=== PATIENT | male | born 1995 | race Caucasian/White ===

== ENCOUNTER 2018-03-09 18:47 | Emergency (ER) | payer SELFPAY ==
[2018-03-09 18:55] VITALS: PULSE 94; RESP 16; TEMP 97.8; O2SAT 98
--- NOTE | 2018-03-09 19:21 | C.PDOC ---
History Of Present Illness 23 y/o male comes to the ED for evaluation of right shoulder pain just prior to arrival. Reports he fell while playing basketball and landed on the right shoulder. Pain is localized over the right shoulder and worsens with movement. Otherwise he denies any head trauma, syncope, headache, or other injury. Time Seen by Provider: 03/09/18 18:50 Chief Complaint (Nursing): Upper Extremity Problem/Injury History Per: Patient History/Exam Limitations: no limitations Onset/Duration Of Symptoms: Hrs Current Symptoms Are (Timing): Still Present Exacerbating Factor(s): Movement Past Medical History Reviewed: Historical Data, Nursing Documentation, Vital Signs Vital Signs: Last Vital Signs Temp 97.8 F 03/09/18 18:53 Pulse 94 H 03/09/18 18:53 Resp 16 03/09/18 18:53 BP Pulse Ox 98 03/09/18 19:28 Family History: States: No Known Family Hx - Social History Hx Tobacco Use: No Hx Alcohol Use: No Hx Substance Use: No - Immunization History Hx Tetanus Toxoid Vaccination: No Hx Influenza Vaccination: No Hx Pneumococcal Vaccination: No Review Of Systems Except As Marked, All Systems Reviewed And Found Negative. Musculoskeletal: Positive for: Shoulder Pain Neurological: Negative for: Weakness, Numbness, Headache, Other (syncope) Physical Exam - Physical Exam Appears: Non-toxic, No Acute Distress Skin: Normal Color, Warm, Dry Head: Atraumatic, Normacephalic Eye(s): bilateral: Normal Inspection Neck: Normal ROM Chest: Symmetrical, No Tenderness Extremity: Tenderness (Diffuse right shoulder tenderness), Capillary Refill (< 2 sec), No Deformity, No Other (skin changes) Pulses: Left Radial: Normal, Right Radial: Normal Neurological/Psych: Oriented x3 ED Course And Treatment O2 Sat by Pulse Oximetry: 98 (RA) Pulse Ox Interpretation: Normal - Other Rad RIGHT SHOULDER X-Ray: Interpreted by Me, Viewed By Me Interpretation: (+) PROXIMAL HUMERUS FX Progress Note: X-rays of the shoulder and clavicle ordered. Patient given PO tramadol for pain control in the ED. X-rays reviewed, Disposition Counseled Patient/Family Regarding: Studies Performed, Diagnosis, Need For Followup, Rx Given - Disposition Referrals: [facility] at [facility] [Outside] Gomez Reno III, MD [Staff Provider] - Disposition: HOME/ ROUTINE Disposition Time: 19:41 Condition: STABLE Additional Instructions: RICE-REST, ICE, SLING TAKE PAIN MEDICATION NEED FOLLOW UP WITH ORTHOPEDIST IN 2 -3 DAYS FOR RE-EVALUATION. RETURN IF ANY NEW CHANGES. 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 - Scribe Statement The provider has reviewed the documentation as recorded by the Scribe (Laine Dozier) All medical record entries made by the Scribe were at my direction and personally dictated by me. I have reviewed the chart and agree that the record accurately reflects my personal performance of the history, physical exam, medical decision making, and the department course for this patient. I have also personally directed, reviewed, and agree with the discharge instructions and disposition.
[2018-03-09] MEDS ORDERED: Oxycodone/Acetaminophen 5/325 mg Tab PO STA (19:40)
[2018-03-09] MEDS ORDERED: Oxycodone/Acetaminophen 5/325 mg Tab ONE (19:42)
--- NOTE | 2018-03-10 09:13 | RAD ---
PROCEDURE: Radiographs of the Right Shoulder HISTORY: injury COMPARISON: No prior. FINDINGS: BONES: No acute fracture. JOINTS: Elevation of the clavicle relative to the acromion. SOFT TISSUES: Normal. OTHER FINDINGS: None. IMPRESSION: Acromioclavicular joint separation. ER notification submitted electronically.
--- NOTE | 2018-03-10 09:15 | RAD ---
PROCEDURE: Radiographs of the right clavicle. HISTORY: injury COMPARISON: None. FINDINGS: RIGHT CLAVICLE: No fracture or focal lesion. JOINTS: Elevation of the clavicle relative to the acromion been possible widening of the acromioclavicular joint. SOFT TISSUES: Grossly unremarkable. OTHER FINDINGS: None. IMPRESSION: Findings suspicious or acromioclavicular joint separation. ER notification submitted electronically.
== END 2018-03-09 19:55 | disposition home or self-care (01) ==
LOC: C.ER 18:47
DX: S42.91XA Fracture of right shoulder girdle, part unspecified, initial encounter for closed fracture (principal); W18.30XA Fall on same level, unspecified, initial encounter; Y93.67 Activity, basketball

== ENCOUNTER 2018-06-15 14:08 | Emergency (ER) | payer MEDICAID ==
[2018-06-15 14:14] VITALS: BMI 31.5
[2018-06-15 14:18] VITALS: BP 138/84; PULSE 76; RESP 18; TEMP 98.3; O2SAT 98
[2018-06-15] MEDS ORDERED: Bacitracin 500 Units/gm Oint Foilpak UD TOP ONE (15:29)
[2018-06-15] MEDS ORDERED: Tdap Vaccine 0.5 ml Vial (10-64 yrs) IM ONE ×2 (15:32→16:00)
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
[2018-06-15] MEDS ORDERED: Bacitracin 500 Units/gm Oint Foilpak UD ONE (15:40)
== END 2018-06-15 16:31 | disposition home or self-care (01) ==
LOC: C.ER 14:08
DX: S60.512A Abrasion of left hand, initial encounter (principal); S60.511A Abrasion of right hand, initial encounter; S70.212A Abrasion, left hip, initial encounter; S80.812A Abrasion, left lower leg, initial encounter; V28.4XXA Motorcycle driver injured in noncollision transport accident in traffic accident, initial encounter; Y92.410 Unspecified street and highway as the place of occurrence of the external cause; Z23 Encounter for immunization
CPT/HCPCS: 90471; 90715; 96372; 99284; J1885

== ENCOUNTER 2018-10-17 15:07 | Emergency (ER) | payer MEDICAID ==
[2018-10-17 15:07] VITALS: BMI 31.5
[2018-10-17 15:43] VITALS: O2SAT 98
--- NOTE | 2018-10-17 16:18 | C.PDOC ---
History Of Present Illness 23 years old male with no PMHx presents to ED for complaints of left greater than right, crampy, epigastric pain that began 2 days ago. Denies fever, chills, nausea, vomiting, diarrhea, constipation, dysuria, hematuria, or any other complaints. Patient also states sometimes I have unprotected sex and he is concerned of STD's. Denies smoking cigarettes. Time Seen by Provider: 10/17/18 15:48 Chief Complaint (Nursing): Abdominal Pain History Per: Patient History/Exam Limitations: no limitations Onset/Duration Of Symptoms: Hrs Current Symptoms Are (Timing): Still Present Location Of Pain/Discomfort: Epigastric Radiation Of Pain To:: None Associated Symptoms: denies: Fever, Chills, Nausea, Vomiting, Diarrhea, Constipation, Urinary Symptoms Exacerbating Factors: None Alleviating Factors: None Last Bowel Movement: Today Recent travel outside of the [place]: No Past Medical History Reviewed: Historical Data, Nursing Documentation, Vital Signs Vital Signs: Last Vital Signs Temp 98.9 F 10/17/18 15:33 Pulse 68 10/17/18 15:33 Resp 20 10/17/18 15:33 BP 118/79 10/17/18 15:33 Pulse Ox 98 10/17/18 15:33 - Medical History PMH: No Chronic Diseases Surgical History: No Surg Hx Family History: States: Unknown Family Hx - Social History Hx Tobacco Use: No Hx Alcohol Use: No Hx Substance Use: Yes - Immunization History Hx Tetanus Toxoid Vaccination: No Hx Influenza Vaccination: No Hx Pneumococcal Vaccination: No Review Of Systems Constitutional: Negative for: Fever, Chills Gastrointestinal: Positive for: Abdominal Pain (Epigastric ). Negative for: Nausea, Vomiting, Diarrhea, Constipation Genitourinary: Negative for: Dysuria, Hematuria Skin: Negative for: Rash Neurological: Negative for: Weakness, Numbness Physical Exam - Physical Exam Appears: Non-toxic, No Acute Distress Skin: Normal Color, Warm, Dry, No Rash Head: Atraumatic, Normacephalic Eye(s): bilateral: Normal Inspection, PERRL, EOMI Oral Mucosa: Moist Neck: Normal ROM, Supple Chest: Symmetrical, No Tenderness Cardiovascular: Rhythm Regular Respiratory: No Accessory Muscle Use, No Rales, No Rhonchi, No Wheezing Gastrointestinal/Abdominal: Bowel Sounds (Active ), Soft, No Tenderness Extremity: Normal ROM Extremity: Bilateral: Atraumatic, Normal Color And Temperature, Normal ROM Pulses: Left Radial: Normal, Right Radial: Normal Neurological/Psych: Oriented x3, Normal Speech Gait: Steady ED Course And Treatment O2 Sat by Pulse Oximetry: 98 (RA ) Pulse Ox Interpretation: Normal - Other Rad Abdomen X-Ray X-Ray: Viewed By Me, Read By Radiologist Interpretation: Date of service: 10/17/2018. HISTORY: abdominal pain. COMPARISON: None available. FINDINGS: BOWEL: The bowel gas pattern is nonspecific. No bowel dilatation. BONES: Normal. OTHER FINDINGS: None. IMPRESSION: Nonspecific nonobstructive bowel gas pattern. Medical Decision Making Medical Decision Making: Plan: * Blood work * Abdomen X-Ray * Urinalysis Disposition Counseled Patient/Family Regarding: Studies Performed, Diagnosis, Need For Followup, Rx Given - Disposition Referrals: [facility] at [facility] [Outside] Disposition: HOME/ ROUTINE Disposition Time: 18:52 Condition: STABLE Prescriptions: Famotidine [Pepcid] 1 tab PO BID #30 tab Instructions: Gastritis (DC) Forms: General Discharge Instructions, [facility] (Faroese), Work Excuse - POA Present On Arrival: None - Clinical Impression Clinical Impression: Abdominal pain, Gastritis - Scribe Statement The provider has reviewed the documentation as recorded by the Scribchele Rogel All medical record entries made by the Elvisibe were at my direction and personally dictated by me. I have reviewed the chart and agree that the record accurately reflects my personal performance of the history, physical exam, medical decision making, and the department course for this patient. I have also personally directed, reviewed, and agree with the discharge instructions and disposition.
--- NOTE | 2018-10-17 16:33 | RAD ---
Date of service: 10/17/2018 HISTORY: abdominal pain COMPARISON: None available. FINDINGS: BOWEL: The bowel gas pattern is nonspecific. No bowel dilatation. BONES: Normal. OTHER FINDINGS: None. IMPRESSION: Nonspecific nonobstructive bowel gas pattern.
[2018-10-17 17:04] LABS: SQUAMOUS EPITHIAL 1 /hpf (0-5); URINE BILIRUBIN NEGATIVE (NEGATIVE); URINE BLOOD NEGATIVE (NEGATIVE); URINE CLARITY Clear (Clear); URINE COLOR Yellow (YELLOW); URINE GLUCOSE (UA) NORMAL (Normal); URINE LEUKOCYTE ESTERASE NEG Leu/uL (Negative); URINE PROTEIN NEGATIVE (NEGATIVE); URINE UROBILINOGEN NORMAL mg/dL (0.2-1.0)
[2018-10-17] MEDS ORDERED: Belladonna-Phenobarbital PO STA (18:26)
[2018-10-17 19:00] VITALS: BP 119/76; PULSE 69; RESP 18; TEMP 98
== END 2018-10-17 19:01 | disposition home or self-care (01) ==
LOC: C.ER 15:07
DX: K29.70 Gastritis, unspecified, without bleeding (principal); R10.13 Epigastric pain

== ENCOUNTER 2019-02-08 11:11 | Emergency (ER) | payer MEDICAID ==
[2019-02-08 11:11] VITALS: BMI 31.5
[2019-02-08 11:25] VITALS: BP 151/75; PULSE 64; RESP 18; TEMP 97.4; O2SAT 98
--- NOTE | 2019-02-08 12:27 | C.PDOC ---
History Of Present Illness 24 year old male presents to ED for evaluation of ingrown hair cyst to his left upper thigh that he has had for the past 2 days. Patient states that he had one months ago and managed to pop it. Patient states that the cyst has been draining. Patient also reports small, red bumps to his lower abdomen around umbilicus. Patient denies fever, chills, numbness, weakness, and itchiness. Chief Complaint (Nursing): Abnormal Skin Integrity History Per: Patient History/Exam Limitations: no limitations Onset/Duration Of Symptoms: Days (2) Current Symptoms Are (Timing): Still Present Location Of Injury: Left: Leg (ingrown hair cyst to the left upper thigh) Quality Of Symptoms: Draining. denies: Itching Past Medical History Reviewed: Historical Data, Nursing Documentation, Vital Signs Vital Signs: Last Vital Signs Temp 97.4 F L 02/08/19 11:22 Pulse 64 02/08/19 11:22 Resp 18 02/08/19 11:22 BP 151/75 H 02/08/19 11:22 Pulse Ox 98 02/08/19 11:22 - Medical History PMH: No Chronic Diseases Surgical History: No Surg Hx Family History: States: Unknown Family Hx - Social History Hx Tobacco Use: No Hx Alcohol Use: Yes Hx Substance Use: Yes - Immunization History Hx Tetanus Toxoid Vaccination: No Hx Influenza Vaccination: No Hx Pneumococcal Vaccination: No Review Of Systems Constitutional: Negative for: Fever, Chills, Weakness Skin: Positive for: Other (ingrown hair cyst to the left upper thigh; small, red bumps to the lower abdomen) Neurological: Negative for: Weakness, Numbness, Dizziness Physical Exam - Physical Exam Appears: Well, Non-toxic, No Acute Distress Skin: Normal Color, Warm, Dry, Other (1.5 mm indurated area to the left upper thigh, tender to palpation, surrounding erythema , no active drainage) Head: Atraumatic, Normacephalic Neck: Normal ROM, Supple Chest: Symmetrical, No Deformity Cardiovascular: Rhythm Regular Respiratory: Normal Breath Sounds, No Accessory Muscle Use, No Wheezing Gastrointestinal/Abdominal: Soft, No Tenderness, Other (umbilicated papules around the umbilicus ) Extremity: Normal ROM, No Pedal Edema, No Calf Tenderness, Capillary Refill (<2 seconds) Neurological/Psych: Oriented x3, Normal Speech, Normal Cognition, Normal Motor, Normal Sensation Gait: Steady ED Course And Treatment O2 Sat by Pulse Oximetry: 98 (in RA) Medical Decision Making Medical Decision Making: Impression: 24 year old male presents to ED for evaluation of ingrown hair cyst that he has had for the past 2 days Plan: Patient given Keflex PO Discussed plan with patient who expresses understanding. All questions answered and there is agreement with the plan to discharge home with instructions. Patient stable for discharge. Return if symptoms persist or worsen. Disposition Counseled Patient/Family Regarding: Diagnosis, Need For Followup, Rx Given - Disposition Referrals: [facility] at [facility] [Outside] Disposition: HOME/ ROUTINE Disposition Time: 12:25 Condition: STABLE Additional Instructions: Please read the discharge handouts regarding Molluscum Contagiosum and Cellulitis Continue Keflex 500mg twice a day Follow up in clinic in 1-2 days Return to the ED if symptoms worsen Prescriptions: Cephalexin [cephalexin] 500 mg PO Q12 #19 cap Instructions: Cellulitis (Skin Infection), Adult (DC), Molluscum Contagiosum (DC) Forms: [employer] (British) - Clinical Impression Clinical Impression: Cellulitis, Molluscum contagiosum - 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 (Mabel Chaves) - Scribe Statement The provider has reviewed the documentation as recorded by the Scribe (Mabel Chaves) All medical record entries made by the Scribe were at my direction and personally dictated by me. I have reviewed the chart and agree that the record accurately reflects my personal performance of the history, physical exam, medical decision making, and the department course for this patient. I have also personally directed, reviewed, and agree with the discharge instructions and disposition.
== END 2019-02-08 12:37 | disposition home or self-care (01) ==
LOC: C.ER 11:11
DX: L03.116 Cellulitis of left lower limb (principal); B08.1 Molluscum contagiosum